=== PATIENT | female | born 1980 | race Caucasian/White ===

== ENCOUNTER 2017-01-10 12:29 | Outpatient (CLI) | payer OTHER ==
--- NOTE | 2017-01-10 18:16 | NM ---
NUCLEAR MEDICINE HEPATOBILIARY SCAN: 01/10/17 HISTORY: 36-year-old female with nausea and abnormal weight loss. TECHNIQUE: [id number] dose: 5.3 mCi Ensure (fatty meal) dose: 8 oz. [id number] injected IV. Dynamic anterior scintigraphy of abdomen for 1 hour. Ensure given. Add itional dynamic anterior scintigraphy of abdomen. Counts obtained over gallbladder. Time-activity c urve generated. FINDINGS: There is normal uptake and washout of radiopharmaceutical agent from the liver. The gallbladder eron ls normally. Bowel activity is visualized at an appropriate time. The gallbladder ejection fractio n is normal: 67%. IMPRESSION: Normal. surjit [] POS: [facility]
== END 2017-01-10 12:30 | disposition home or self-care (01) ==
LOC: NM 12:29
PROVIDERS: ATTEND Internal Medicine
DX: R11.0 Nausea (principal); R63.4 Abnormal weight loss
CPT/HCPCS: 78227; A9537

== ENCOUNTER 2018-04-01 16:10 | Outpatient (CLI) | payer OTHER ==
--- NOTE | 2018-04-02 09:24 | MRI ---
MRI PELVIS PERFORMED WITH AND WITHOUT CONTRAST ENHANCEMENT: Comparison: 02-22-16, 06-09-15. Plain film examination of the sacrum, 03-12-18. History: Patient is status post fall with suspicion for sacral fracture. Also history of sarcoma. FINDINGS: MRI examination does confirm the presence of a more nondisplaced fracture through the sacrum. This is a more transversely oriented fracture. It is nondisplaced. Patient's left sciatic notch mass shows interval increase in size as compared to the 2016 study and t rying to directly compare to what was measured on the previous examination, measurements of 2.1 x 2.9 cm were obtained on that prior examination measuring in the same manner on today's examination yield s measurements of 2.9 x 3.5 cm. In addition to this area that was measured, a component of the mass w hich is directly adjacent to the posterior margin of the acetabulum has also definitely increased in size. In comparing measurements in this area best seen on axial image 4 of the T1 weighted noncontras t study a diameter of 2.2 cm is obtained on the prior examination as compared to 2.7 cm on the curren t study. Prominent follicles are seen involving the adnexa. No significant pelvic lymphadenopathy is identifie d. IMPRESSION: 1. Nondisplaced sacral fracture. 2. Interval enlargement of the left sided sciatic notch mass. POS: [facility]
== END 2018-04-01 16:11 | disposition home or self-care (01) ==
LOC: MRI 16:10
PROVIDERS: ATTEND Family Medicine
DX: S32.10XA Unspecified fracture of sacrum, initial encounter for closed fracture (principal); C49.22 Malignant neoplasm of connective and soft tissue of left lower limb, including hip
CPT/HCPCS: 72197

== ENCOUNTER 2018-11-26 14:24 | Outpatient (CLI) | payer OTHER ==
--- NOTE | 2018-11-26 14:59 | MMO ---
Bilateral MAMMO Bilat Screen DDI+JADON. CLINICAL HISTORY: Patient is 38 years old and is seen for screening. The patient has no family history of breast cancer. The patient has a history of other cancer. VIEWS: The views performed were: bilateral craniocaudal with tomosynthesis and bilateral mediolateral oblique with tomosynthesis. MAMMOGRAM FINDINGS: The breasts are heterogeneously dense, which could obscure a lesion on mammography. There are no suspicious masses, suspicious calcifications, or new areas of architectural distortion. IMPRESSION: THERE IS NO MAMMOGRAPHIC EVIDENCE OF MALIGNANCY. A ROUTINE FOLLOW-UP MAMMOGRAM IN 1 YEAR IS RECOMMENDED. THE RESULTS OF THIS EXAM WERE SENT TO THE PATIENT. ACR BI-RADS Category 1 - Negative MAMMOGRAPHY NOTE: 1. A negative mammogram report should not delay a biopsy if a dominant of clinically suspicious mass is present. 2. Approximately 10% to 15% of breast cancers are not detected by mammography. 3. Adenosis and dense breasts may obscure an underlying neoplasm. Reported by: KIMBERLY RASHID MD Electonically Signed: [id number]
== END 2018-11-26 14:25 | disposition home or self-care (01) ==
LOC: BICMAMMO 14:24
PROVIDERS: ATTEND Family Medicine
DX: Z12.31 Encounter for screening mammogram for malignant neoplasm of breast (principal); Z85.89 Personal history of malignant neoplasm of other organs and systems
CPT/HCPCS: 77063; 77067

== ENCOUNTER 2019-07-15 00:47 | Inpatient (IN) | payer OTHER ==
[2019-07-15 03:27] VITALS: BMI 23.1
[2019-07-15] MEDS ORDERED: D5 1/2 NS w/20 mEq KCL 1,000 ML IV SCH (03:30)
[2019-07-15] MEDS ORDERED: Gabapentin 300 MG CAP PO SCH ×2 (03:45→21:00)
[2019-07-15] MEDS ORDERED: Loratadine 10 MG TAB PO PRN (04:43)
[2019-07-15] MEDS ORDERED: Fentanyl 100 MCG/2 ML VIAL SLOW IVP PRN (04:44)
[2019-07-15] MEDS ORDERED: Lorazepam 1 MG TAB PO SCH (04:45)
[2019-07-15] MEDS ORDERED: Valproate Sodium 500 MG in Sodium Chloride 0.9% 100 ML IVPB SCH (04:45)
[2019-07-15] MEDS ORDERED: Prevnar 13-Val Conj/PF 0.5 ML SYRINGE IM ONE (09:00)
[2019-07-15] MEDS ORDERED: Zolpidem Tartrate 5 MG TAB PO PRN (09:40)
[2019-07-15] MEDS ORDERED: Promethazine HCl 25 MG in Sodium Chloride 0.9% 50 ML IVPB PRN (09:40)
[2019-07-15] MEDS ORDERED: Acetaminophen 325 MG TAB PO PRN (09:40)
[2019-07-15] MEDS ORDERED: HYDROcodone/Acetaminophen 10/325 mg Tablet PO PRN (09:40)
[2019-07-15] MEDS ORDERED: Promethazine 25 MG TAB PO PRN (09:40)
[2019-07-15] MEDS ORDERED: hydrALAZINE 25 MG TAB PO PRN (09:40)
--- NOTE | 2019-07-15 10:13 | HP ---
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 She has a history of soft tissue sarcoma that is being followed by [facility]. She was in her usual state of health until, she says Saturday, July 02, when she says she started getting nauseated and vomited. She felt like she was having a low-grade headache and was having some vertigo symptoms. She also says that the light was bothering her eyes and she started having somewhat of a low-grade headache. She thought she had like flu-like symptoms and went to the emergency room in [place] and they did a flu screen as well as COVID-19 screen and they discharged her home. She says that all week she was having temperature to 100.4 and then also to 100.8. She says that the headache got progressively worse and worse each day. 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 She was given a prescription for Levaquin, which she filled and started taking; however, after a couple of days of Levaquin, she still continued to have the headache. She also had another COVID test done. Both tests came back negative. By Saturday, she says she felt the worst of all, but then by Saturday, she started to feel a little bit better and Saturday she thought she might be getting better; but than on Saturday, things started getting worse all over again. This time, she went to the ER. They gave her Toradol as well as fentanyl. She said the fentanyl seemed worse, then she got Dilaudid, which also seemed to make the headache worse and as a result, she came to the ER in [place] again. They transferred her here. She had an LP done, it was significant for some red blood cells in the second tube and for this reason, there was a concern and she was transferred here for higher level of care. Otherwise, the patient continues to have the headache. She says that lorazepam and Depakote has helped some, but not completely. She says she has lost a lot of sleep as a result of this bad headache. She denies any weakness in her extremities, no more than what is usual for her after she had resection of the sarcoma from the sacral region and the nausea persists, but no vomiting. No chest pain. No cough or congestion. REVIEW OF SYSTEMS: All systems were reviewed and are negative except for that mentioned in the history of present illness. PAST MEDICAL HISTORY: Significant for soft tissue sarcoma, asthma, and anxiety. 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 PAST SURGICAL HISTORY: She had resection of the tumor, but there was some residual tumor left. She says it is close to the sciatic nerve and this was done at [facility] in 2016. Also had a history of sinus surgery. ALLERGIES: TO PENICILLIN, WHICH CAUSES A RASH. SULFA, SHE HAD FULL-BLOWN REDDY-DEZ SYNDROME AND SHE IS ALSO INTOLERANT TO CEPHALOSPORINS. SOCIAL HISTORY: She is . She has 2 children, 2 sons, ages 11 and 7. She is a nonsmoker. She occasionally drinks. No recreational drug use. FAMILY HISTORY: No history of any heritable diseases. MEDICATIONS: Include; 1. Horizant 600 mg twice a day. 2. Cymbalta 60 mg daily. 3. [place] 10/325. She says, she takes to a half tablet, just only as needed. 4. Levaquin 500 mg daily. 5. Linzess 145 mcg daily. 6. Lorazepam 1 mg twice a day. 7. Prednisone as needed. PHYSICAL EXAMINATION: GENERAL: She is alert and oriented. She appears to be in no acute distress. She is well developed and well nourished. VITAL SIGNS: Blood pressure is 144/89, heart rate 68, respiratory rate of 16, temperature is 98.2, and O2 saturation is 100% on room air. HEENT: Pupils are equal, round, and reactive to light. Extraocular muscles are intact. Sclerae are anicteric. Throat, no erythema, no exudates. NECK: No adenopathy. No bruits. LUNGS: Clear to auscultation. No wheezing. No rales. No rhonchi. CARDIOVASCULAR: She has a normal S1, S2. There is no S3 or S4. No murmurs, clicks, or rubs. ABDOMEN: Soft, nontender, and nondistended. Positive for bowel sounds. No rebound. No guarding. No organomegaly. EXTREMITIES: There is no clubbing or cyanosis. No edema. No calf tenderness. She did have a little bit of muscle atrophy on the left calf. NEUROLOGIC: Cranial nerves are intact. Her muscle strength is 5/5 in both her upper and lower extremities. There is no nuchal rigidity and negative Brudzinski sign. SKIN AND INTEGUMENT: There are no skin changes. No rash. LABORATORY RESULTS: These are from last night; white blood cell count 6.3, hemoglobin 12.6, hematocrit is 38.9, and platelet count is 252. INR 0.9. Sodium 139, potassium 3.7, chloride is 103, CO2 is 26, BUN of 5, creatinine 0.68, and glucose is 96. Urinalysis was negative. She also had a CT scan of the brain showing no acute intracranial abnormalities. ASSESSMENT: This is a pleasant 39-year-old female with the worst headache that she has ever had. This has been a more or less protracted course and she is coming up on almost two weeks of symptoms off and on, which is a bit unusual for potential subarachnoid hemorrhage. However, she did have some red blood cells in the CSF, but there was no mention of any xanthochromia. 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 She has had two negative screens; however, there had been some anecdotal cases where the patients who has had up to 2 or 3 negative screens and then have become positive on a subsequent screen. This is a novel illness with not much experience with this particular virus. Therefore, we will consult Dr. Collier to see whether or not an additional COVID screen is warranted. Also, given the unusual nature of her headache, we will also consult Neurology to aid in the evaluation. In the meantime, we will go ahead and order an MRI as well as an MR angiogram of the brain to rule out aneurysm and treat her symptomatically. Job ID: [id number]
--- NOTE | 2019-07-15 10:35 | MRI ---
Exam: MR angiography of the brain HISTORY: Severe headache COMPARISON: None TECHNIQUE: MRA exam of the [place] is performed in the axial plane utilizing 3-D, flight elijah ging. Maximum intensity projection images are submitted for interpretation FINDINGS: Symmetric flow related signal in the visualized distal cervical and intracranial internal carotid art eries Anterior circulation: Symmetric flow related signal in the A1 segments, M1 segments, proximal A2 segm ents and proximal MCA branches. No evidence of high-grade occlusion or anterior circulation aneurysm. Posterior circulation: Visualized intracranial vertebral arteries have appropriate flow related signa l. Bilateral PICA artery origins have appropriate flow related signal. Both vertebral arteries supply a normal appearing basilar artery. There is appropriate flow related signal. Bilateral P1 segm ents have appropriate flow related signal. No evidence of occlusion or posterior circulation aneurysm. IMPRESSION: No evidence of an anterior circulation posterior circulation aneurysm.
[2019-07-15] MEDS ORDERED: Hydrocortisone Sod Succ/PF 1,000 MG in Sodium Chloride 0.9% 50 ML IVPB SCH (11:00)
[2019-07-15] MEDS ORDERED: DULoxetine 60 MG CAP PO SCH (11:00)
--- NOTE | 2019-07-15 11:03 | MRI ---
MRI BRAIN NONCONTRAST: DATE: 07/15/2019 HISTORY: 39-year-old female with severe headache FINDINGS: The ventricles are normal in size and configuration. There is no major intra-axial signal abnormality , restricted diffusion, midline shift or any other mass effect, recent intra-axial hemorrhage, or extra-axial fluid collection. IMPRESSION: Normal
[2019-07-15] MEDS: diphenhydrAMINE 50 MG/ML VIAL IVP SCH ×2 (11:50→18:15)
[2019-07-15] MEDS: Prochlorperazine 10 MG/2 ML VIAL IVP SCH ×2 (11:50→18:15)
--- NOTE | 2019-07-15 13:05 | CON ---
DATE OF CONSULTATION: REASON FOR CONSULTATION: Severe headache. 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 The headache started with nausea, vomiting, and dizziness. She also had some flu-like symptoms. She went to the emergency room in [place] and did a flu screen as well as COVID screen and was discharged home. She also developed temperature during that time of about 100.4 and had a COVID test done, which came out to be negative. Then, she had another COVID test done because the headache did not resolve, which was also came back negative. But this Saturday, she had the worst headache, which continued until Saturday, and she felt a little bit on Saturday, but on Saturday, it was worse again and she decided to come to the ED for further evaluation. She was given Toradol and fentanyl, which did not improve the headache symptoms. She had an LP done, which showed some red blood cells in the second tube and there was a concern about a subarachnoid hemorrhage, and she was transferred to here to [facility] for higher level of care. She received Depakote and Ativan, which did relieve the headache for some time, but then it recurred again. She denies focal weakness, vertigo, or focal paresthesias associated with the headache. She does have nausea and vomiting, but denies chest pain or abdominal pain. REVIEW OF SYSTEMS: All systems were reviewed and are negative except for that mentioned in the HPI. PAST MEDICAL HISTORY: Soft tissue sarcoma, asthma, and anxiety. PAST SURGICAL HISTORY: Tumor resection with some residual tumor in 2016 at [facility]. ALLERGIES: PENICILLIN AND CEPHALOSPORIN. SOCIAL HISTORY: She is . Has 2 children, 11 and 7. She is a nonsmoker. She drinks alcohol occasionally. Denies any illegal drug use. FAMILY HISTORY: No significant family history. MEDICATIONS: 1. Horizant 600 mg twice daily. 2. Cymbalta 60 mg daily. 3. [place] 10/325 half tablet as needed. 4. Levaquin 500 mg daily. 5. Linzess 145 mcg daily. 6. Lorazepam 1 mg twice daily. 7. Prednisone as needed. PHYSICAL EXAMINATION: CVS: Regular rate and rhythm. CHEST: Clear. ABDOMEN: Soft. NEUROLOGIC: Mental status: The patient is alert and oriented to person, place , and time. Cranial nerves 2 through 12 intact. Motor, muscle tone and bulk are normal. Moving all 4 extremities equally and symmetrically. Sensory deferred. Reflexes deferred. Cerebellar intact. Gait not tested because of the patient's safety reasons. LABORATORY AND DIAGNOSTIC DATA: Labs were essentially unremarkable. Urinalysis was negative. CT scan of the brain reviewed, which was negative. MRI of the brain reviewed, which was negative. MRA of the head is also negative. ASSESSMENT: This is a pleasant 39-year-old female with a worse headache of her life for 2 weeks. Currently, she rates her headache as 6/10. PLAN: 1. MRI of brain reviewed, which was negative for acute intracranial pathology. 2. MRA of the head reviewed, which did not reveal any anterior or posterior circulation aneurysm. 3. Continue neuro checks every 4 hours. 4. Continue home medications. 5. Recommend methylprednisone 1 g IV x1 now. 6. Consider Compazine and Benadryl every 6 hours for 48 hours. 7. Continue depakote. 8. Continue medical management per Primary Team. We will continue to follow. Thank you for the consult. Job ID: [id number] MTDD
[2019-07-15] MEDS: Gabapentin 300 MG CAP PO SCH ×2 (15:53→20:51)
[2019-07-15 17:49] LABS: Follicle Stimulating Hormone 5.76 mIU/mL (See Ranges); Luteinizing Hormone 5.01 mIU/mL (See Ranges)
--- NOTE | 2019-07-15 17:54 | CON ---
DATE OF CONSULTATION: 07/15/2019 REASON FOR CONSULTATION: Severe headaches, fever. 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 It was felt to be a schwannoma, which was partially resected in [facility]. She has been followed at [facility] every 6 months and apparently has been sore with stationary. She has a little bit of what she describes as myotonic contractions in the left lower extremity from time to time. She only thinks that she takes symptomatic medication with gabapentin. 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 She had a COVID test and a flu screen, which were negative. T-max 100.4 and 100.8, and then headache became worse progressively, had some sore throat, and had a rapid strep test and another COVID test, which were negative. She continued to deteriorate and then got better and then deteriorated again with the headaches, came to the emergency room, was given fentanyl and Toradol. Has had a CT of head, which demonstrated no acute intracranial abnormality. Had an MRI without contrast with nothing abnormal. Also, an MRA with no abnormalities noted. She had a spinal fluid examination and the results are discussed below. Currently, she is feeling better. The headache is minimal. No photophobia anymore. No sore throat, odynophagia, or dysphagia. No neck pain. No back pain. No cough, sputum production, or chest pain. No nasal symptoms or ear symptoms. No abdominal pain or diarrhea. No genitourinary symptoms. No joint symptoms. PAST MEDICAL HISTORY: Remarkable for: 1. Schwannoma, followed at [facility], partially resected. 2. Myotonic symptoms in left lower extremity. 3. Asthma. SURGICAL HISTORY: As above. ALLERGIES: PENICILLIN AND SULFA DRUGS WITH REDDY-DEZ SYNDROME. SOCIAL HISTORY: She is a doctor, works in [employer]. , 2 children. Drinks occasionally. FAMILY HISTORY: Noncontributory. CURRENT MEDICATIONS: She is on: 1. [place]. 2. Benadryl. 3. Cymbalta. 4. Neurontin. 5. Apresoline. 6. Levaquin. 7. Claritin. 8. Linzess. 9. Compazine. 10. Phenergan. 11. Promethazine. 12. Zolpidem. PHYSICAL EXAMINATION: VITAL SIGNS: She has been afebrile since admission, blood pressure 120/70, pulse 75, respirations 14, and O2 saturation 99. SKIN: Normal. No lymphadenopathy. HEENT: Ocular movements conjugate. Sclerae white. Pupils are equal. Oral cavity normal. Teeth in excellent shape. NECK: Supple. No jugular vein distention. LUNGS: Symmetric with clear breath sounds. HEART: S1 and S2, regular rate. No S3 or S4. ABDOMEN: Soft, not distended or tender. No ascites. No bladder distention. EXTREMITIES: No joint inflammatory activity. NEUROLOGIC: Nonfocal including cognitive function. LABORATORY DATA: The latest white cell count is 6.3, hemoglobin normal, MCV normal, and differential is normal. INR 0.9. Chemistry was remarkable for BUN of 5, glucose 138. CRP 0.6. Globulin 2.2. Cholesterol 203. TSH was 1.15. Beta- hCG was not done. Actually, she had a serum test, that was long time ago. Urinalysis normal. Immunology was normal. She has the COVID repeat test, which was negative. [place] screen was negative. IMAGING STUDIES: As reported above. There was an abdomen and pelvis CT from with mass in the left sciatic notch, larger than on the remote scans. No obvious evidence of metastatic disease. She had a chest x-ray, which was normal. ASSESSMENT: 1. History of schwannoma, not completely resected, with some enlargement in the latest scan from October last year. 2. New onset of headache, nausea, low-grade fever with a cerebrospinal fluid showing small numbers of rbc's, but zero wbc's and normal protein and glucose. No evidence of subarachnoidal hemorrhage on MRIs and CT scan. The MRA was normal. DISCUSSION: Differential diagnosis includes transient viral illness unrelated to COVID versus pituitary apoplexy, which can mimic meningitis and it can manifest with some degree of red blood cell in the CSF. The 3rd concern is with the malignancy progression in view of the growth detected in October. At this moment, I would advise repeating the MRI with contrast. Check in hormone levels, particularly FSH, LH, ACTH, and cortisol. Consider repeating the CT of abdomen and pelvis to evaluate the size of the sarcoma. Finally, a pseudotumor cerebri is another concern. I do not see that an opening pressure was measured when this spinal fluid was retrieved. So repeat MRI, consider reimaging the schwannoma. Check for hormone levels. P.S.: in discussion with dr. Evans, radiology, he stated that the existing MRI imaging was sufficient to exclude pituitary apoplexy, so will cancel the repeat study. Job ID: [id number] [facility]
[2019-07-15] MEDS: Lorazepam 1 MG TAB PO SCH (20:51)
[2019-07-15] MEDS ORDERED: GABAPENTIN ENACARBIL 600 MG PO SCH (21:00)
[2019-07-16] MEDS: Prochlorperazine 10 MG/2 ML VIAL IVP SCH ×3 (00:05→11:18)
[2019-07-16] MEDS: diphenhydrAMINE 50 MG/ML VIAL IVP SCH ×3 (00:06→12:53)
[2019-07-16 04:38] LABS: #Lymphocytes 0.7 thou/uL (1.20-3.40); #Monocytes 0.3 thou/uL (0.11-0.59); #Neutrophils 6.6 thou/uL (1.40-6.50); %Basophils 0.2 % (0.0-1.0); %Lymphocytes 9.2 % (21.0-51.0); %Monocytes 3.8 % (0.0-10.0); %Neutrophils 86.8 % (42.0-75.0); Hemoglobin 11.4 g/dL (12.0-16.0); Mean Corpuscular HGB CONC 32.9 g/dL (32.0-36.0); Mean Corpuscular Hemoglobin 31.2 pg (27.0-31.0); Mean Corpuscular Volume 94.7 fL (78.0-98.0); Mean Platelet Volume 7.8 fL (7.4-10.4); Platelet Count 253 thou/uL (130-400); RBC Distribution Width 11.6 % (11.5-14.5); Red Blood Cell (RBC) Count 3.67 mill/uL (4.20-5.40); White Blood Cell (WBC) Count 7.7 thou/uL (4.8-10.8)
[2019-07-16 04:58] LABS: Anion Gap 10 mmol/L (10-20); BUN (Urea Nitrogen) 12 mg/dL (7.0-18.7); Calc. Creatinine Clearance 91 mL/min (70-130); Calcium 8.9 mg/dL (7.8-10.44); Carbon Dioxide 24 mmol/L (22-29); Chloride 107 mmol/L (98-107); Estimated GFR-MDRD 81; Glucose 195 mg/dL (70-105); Potassium 3.9 mmol/L (3.5-5.1); Sodium 137 mmol/L (136-145)
[2019-07-16] MEDS ORDERED: DULoxetine 60 MG CAP PO SCH (09:00)
[2019-07-16] MEDS ORDERED: Non-Formulary Item 1 EACH (Linaclotide [Linzess] 145 MCG) PO SCH (09:00)
[2019-07-16] MEDS ORDERED: Linaclotide [Linzess] 145 MCG PO SCH (09:00)
[2019-07-16] MEDS: Gabapentin 300 MG CAP PO SCH (09:59)
[2019-07-16] MEDS: Lorazepam 1 MG TAB PO SCH (10:02)
--- NOTE | 2019-07-16 11:20 | PDOC.HOSPP ---
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 She says she is feeling much better today. She says the headache is gone. - Objective Vital Signs & Weight: Vital Signs (12 hours) Temp Pulse Resp BP Pulse Ox 07/16/19 08:30 14 91/53 L 07/16/19 08:00 98 07/16/19 07:40 98.6 F 62 14 86/47 L 98 07/16/19 03:44 97.1 F L 71 18 84/45 L 98 07/16/19 00:07 88 Weight Weight 134 lb 7.712 oz I&O: 07/15/19 07/16/19 07/17/19 06:59 06:59 06:59 Intake Total 1670 Balance 1670 Result Diagrams: 07/16/19 03:55 07/16/19 03:55 Hospitalist ROS - Medication Medications: Active Medications Generic Name Dose Route Start Last Admin Trade Name Freq PRN Reason Stop Dose Admin Diphenhydramine HCl 25 mg 07/15/19 12:00 07/16/19 05:00 Benadryl IVP 07/17/19 06:01 25 mg Q6HR PENELOPE Administration Duloxetine HCl 60 mg 07/16/19 09:00 07/16/19 09:58 Cymbalta PO 60 mg DAILY PENELOPE Administration Gabapentin 600 mg 07/15/19 15:00 07/16/19 09:59 Neurontin PO 600 mg TID PENELOPE Administration Levofloxacin 500 mg 07/16/19 09:00 07/16/19 09:58 Levaquin PO 500 mg DAILY PENELOPE Administration Lorazepam 1 mg 07/15/19 21:00 07/16/19 10:02 Ativan PO Not Given BID PENELOPE Prochlorperazine Edisylate 10 mg 07/15/19 10:00 07/16/19 11:18 Compazine IVP 07/17/19 04:01 Not Given 0400,1000,1600,2200 PENELOPE Sodium Chloride 10 ml 07/15/19 21:00 07/16/19 09:59 Flush - Normal Saline IVF 10 ml Q12HR PENELOPE Administration Sodium Chloride 10 ml 07/15/19 09:41 07/16/19 04:54 Flush - Normal Saline IVF 10 ml PRN PRN Administration Saline Flush - Exam Heart: RRR, no murmur, no gallops, no rubs, normal peripheral pulses Respiratory: CTAB, no wheezes, no rales, no ronchi, normal chest expansion Gastrointestinal: soft, non-tender, non-distended, normal bowel sounds Hosp A/P (1) Severe headache Code(s): R51 - HEADACHE Status: Acute (2) Viral syndrome Status: Acute - Plan * Headache- much improved * Suspected Viral syndrome- improved * Stable for discharge home.
--- NOTE | 2019-07-16 11:40 | PDOC.HOSPP ---
- Subjective Encounter Date: 07/16/19 Subjective: Patient is alert and awake. Headache resolved. - Objective Vital Signs & Weight: Vital Signs (12 hours) Temp Pulse Resp BP Pulse Ox 07/16/19 08:30 14 91/53 L 07/16/19 08:00 98 07/16/19 07:40 98.6 F 62 14 86/47 L 98 07/16/19 03:44 97.1 F L 71 18 84/45 L 98 07/16/19 00:07 88 Weight Weight 134 lb 7.712 oz I&O: 07/15/19 07/16/19 07/17/19 06:59 06:59 06:59 Intake Total 1670 Balance 1670 Result Diagrams: 07/16/19 03:55 07/16/19 03:55 Radiology Reviewed by me: Yes EKG Reviewed by me: Yes Hospitalist ROS - Review of Systems Constitutional: denies: fever, chills, sweats, weakness, malaise, other Eyes: denies: pain, vision change, conjunctivae inflammation, eyelid inflammation, redness, other ENT: denies: ear pain, ear discharge, nose pain, nose discharge, nose congestion , mouth pain, mouth swelling, throat pain, throat swelling, other Respiratory: denies: cough, dry, shortness of breath, hemoptysis, SOB with excertion, pleuritic pain, sputum, wheezing, other Cardiovascular: denies: chest pain, palpitations, orthopnea, paroxysmal noc. dyspnea, edema, light headedness, other Gastrointestinal: denies: nausea, vomiting, abdominal pain, diarrhea, constipation, melena, hematochezia, other Genitourinary: denies: dysuria, frequency, incontinence, hematuria, retention, other Musculoskeletal: reports: other (Headache woth photophobia). denies: neck pain , shoulder pain, arm pain, back pain, hand pain, leg pain, foot pain Skin: denies: rash, lesions, rajan, bruising, other Neurological: denies: weakness, numbness, incoordination, change in speech, confusion, seizures, other - Medication Medications: Active Medications Generic Name Dose Route Start Last Admin Trade Name Freq PRN Reason Stop Dose Admin Diphenhydramine HCl 25 mg 07/15/19 12:00 07/16/19 05:00 Benadryl IVP 05/01/20 06:01 25 mg Q6HR PENELOPE Administration Duloxetine HCl 60 mg 07/16/19 09:00 07/16/19 09:58 Cymbalta PO 60 mg DAILY PENELOPE Administration Gabapentin 600 mg 07/15/19 15:00 07/16/19 09:59 Neurontin PO 600 mg TID PENELOPE Administration Levofloxacin 500 mg 07/16/19 09:00 07/16/19 09:58 Levaquin PO 500 mg DAILY PENELOPE Administration Lorazepam 1 mg 07/15/19 21:00 07/16/19 10:02 Ativan PO Not Given BID PENELOPE Prochlorperazine Edisylate 10 mg 07/15/19 10:00 07/16/19 11:18 Compazine IVP 07/17/19 04:01 Not Given 0400,1000,1600,2200 PENELOPE Sodium Chloride 10 ml 07/15/19 21:00 07/16/19 09:59 Flush - Normal Saline IVF 10 ml Q12HR PENELOPE Administration Sodium Chloride 10 ml 07/15/19 09:41 07/16/19 04:54 Flush - Normal Saline IVF 10 ml PRN PRN Administration Saline Flush - Exam General Appearance: awake alert Eye: PERRL, anicteric sclera ENT: normocephalic atraumatic, no oropharyngeal lesions, moist mucosa Neck: supple Heart: RRR Respiratory: CTAB Gastrointestinal: soft Extremities: no cyanosis, no clubbing, no edema Skin: normal turgor Neurological: cranial nerve grossly intact, normal sensation to touch, no weakness, no focal deficits Musculoskeletal: normal tone, normal strength, no muscle wasting Psychiatric: normal affect, normal behavior, A&O x 3, oriented to time Hosp A/P (1) Severe headache Code(s): R51 - HEADACHE Status: Acute (2) Viral syndrome Status: Acute - Plan old records reviewed/req Headache resolved. Continue home medications. Neurochecks every 4 hours. Can discontinue IV medications. Stable to be discharged from neurology perspective. Continue medical management per primary . Repeat MRI for sarcoma follow up will defer to primary team.
--- NOTE | 2019-07-16 12:12 | DIS ---
DATE OF ADMISSION: 07/15/2019 DATE OF DISCHARGE: 07/16/2019 PRIMARY CARE PHYSICIAN: Dr. López Meza. DISCHARGE DISPOSITION: Home. DISCHARGE DIAGNOSES: 1. Severe headache, etiology is unknown. 2. Probable viral syndrome. 3. 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 4. Asthma. 5. Anxiety disorder. 6. Urinary retention. DISCHARGE MEDICATIONS: The patient is being discharged on the same medications as admission and include; 1. Lorazepam 1 mg twice daily. 2. She is to continue levofloxacin 500 mg daily. 3. [place] 10/325, 1/2 to 1 tablet q.4 hours as needed. 4. Horizant 600 mg twice a day. 5. Cymbalta 60 mg daily. IMAGING STUDIES: The imaging done during the admission: The patient had a CT scan of the brain, which was negative for any acute intracranial abnormalities. Also, had an MRI and MR angiogram of the brain, which were also negative for any anterior or posterior circulation aneurysm. I talked with the radiologist and he informed me that the pituitary was well visualized and there was no evidence of any enlargement or any hemorrhagic change. CODE STATUS: Full code. ALLERGIES: CEPHALOSPORINS, PENICILLINS, AND SULFA. 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 She has a primary care physician in the area. She was admitted due to severe headache, which had been off and on since July 02. She has also had some fever off and on as well. Due to the worsening nature of the headache as well as the underlying fever that she had, she went to the emergency room in [place], where she had an evaluation. The full details of which are outlined in the history and physical. On this trip to the emergency room, they proceeded with an LP. There was concern due to some red cells in the CSF and she was as a result transferred to our facility for higher level of care. She was evaluated by Neurology as well as ID. Dr. Collier was consulted due to concerns of possible COVID-19 infection. She had 2 previous COVID-19 screens, which were negative, and in discussion with him, he felt that another test was not needed, and due to the low prevalence in our surrounding community, that the negative test is likely a true negative. She was seen by neurologist and was placed on a migraine type cocktail with improvement in her symptoms. The following day, she was completely headache free, although still a bit fatigued. As a result, she will be discharged to home and she will need to follow up with her primary care physician in 1 to 2 weeks. Job ID: [id number]
[2019-07-16 12:55] VITALS: BP 94/56; TEMP 98.5
[2019-07-17 08:12] LABS: EBV VCA IgM <36.0 U/mL (0.0-35.9); Nuclear AG IgG (EBNA) AB 83.8 U/mL (0.0-17.9)
== END 2019-07-16 13:48 | disposition home or self-care (01) | DRG 866 ==
LOC: 2NO 03:16 → OBSVTOIN 03:16
PROVIDERS: ADMIT Internal Medicine; ATTEND Internal Medicine
DX: B34.9 Viral infection, unspecified (principal); J45.909 Unspecified asthma, uncomplicated; F41.9 Anxiety disorder, unspecified; R33.9 Retention of urine, unspecified; Z88.0 Allergy status to penicillin; Z88.2 Allergy status to sulfonamides; Z88.1 Allergy status to other antibiotic agents; Z79.2 Long term (current) use of antibiotics
CPT/HCPCS: 36415; 70544; 70551; 80048; 82024; 82533; 83001; 83002; 85025; 86664; 86665; J0780; J1200; J1720; J2550; J3480; J3490

== ENCOUNTER 2020-03-02 15:52 | Outpatient (CLI) | payer OTHER ==
--- NOTE | 2020-03-02 16:20 | MMO ---
Bilateral MAMMO Bilat Screen [facility]. CLINICAL HISTORY: Patient is 40 years old and is seen for screening. The patient has no family history of breast cancer. The patient has a history of other cancer. VIEWS: The views performed were: bilateral craniocaudal with tomosynthesis and bilateral mediolateral oblique with tomosynthesis. FILMS COMPARED: The present examination has been compared to a prior imaging study performed at [facility] on 11/26/2018. This study has been interpreted with the assistance of computer-aided detection. MAMMOGRAM FINDINGS: The breasts are heterogeneously dense, which could obscure a lesion on mammography. There are no suspicious masses, suspicious calcifications, or new areas of architectural distortion. IMPRESSION: THERE IS NO MAMMOGRAPHIC EVIDENCE OF MALIGNANCY. A ROUTINE FOLLOW-UP MAMMOGRAM IN 1 YEAR IS RECOMMENDED. THE RESULTS OF THIS EXAM WERE SENT TO THE PATIENT. ACR BI-RADS Category 1 - Negative MAMMOGRAPHY NOTE: 1. A negative mammogram report should not delay a biopsy if a dominant of clinically suspicious mass is present. 2. Approximately 10% to 15% of breast cancers are not detected by mammography. 3. Adenosis and dense breasts may obscure an underlying neoplasm. Reported by: KIMBERLY RASHID MD Electonically Signed: [id number]
== END 2020-03-02 15:53 | disposition home or self-care (01) ==
LOC: BICMAMMO 15:52
PROVIDERS: ATTEND Family Medicine
DX: Z12.31 Encounter for screening mammogram for malignant neoplasm of breast (principal); Z85.89 Personal history of malignant neoplasm of other organs and systems
CPT/HCPCS: 77063; 77067

== ENCOUNTER 2021-11-23 09:11 | Outpatient (CLI) | payer BC | END 2021-11-23 09:12 | disposition home or self-care (01) | LOC: BICMAMMO 09:11 | PROVIDERS: ATTEND Family Medicine | DX: Z12.31 Encounter for screening mammogram for malignant neoplasm of breast (principal); Z85.89 Personal history of malignant neoplasm of other organs and systems | CPT/HCPCS: 77063; 77067 ==

== ENCOUNTER 2024-03-13 14:53 | Outpatient (CLI) | payer BC, OTHER | END 2024-03-13 14:54 | disposition home or self-care (01) | LOC: BICMAMMO 14:53 | PROVIDERS: ATTEND Physician Assistant | DX: R92.8 Other abnormal and inconclusive findings on diagnostic imaging of breast (principal); N64.89 Other specified disorders of breast | CPT/HCPCS: G0279 ==